=== PATIENT | male | born 1955 | race African-American/Black ===

== ENCOUNTER 2019-12-07 10:24 | Inpatient (IN) ==
[2019-12-07] MEDS ORDERED: KETOROLAC 60 MG/2 ML VIAL IM STA (12:02)
[2019-12-07 12:46] LABS: Basophils # 0.1 10*3/uL (0.0-0.2); Basophils % 0.2 % (0.0-0.8); Eosinophils # 0.1 10*3/uL (0.0-0.87); Eosinophils % 0.2 % (0.00-10.9); Hematocrit 27.1 VOL% (42.0-52.0); Immature Granulocytes % 1.2 %; Immature Granulocytes Absolute 0.45 #; Lymphocytes # 1.1 10*3/uL (1.4-4.0); Mean Corpuscular HGB Conc 33.2 GM/DL (32-36); Mean Corpuscular Volume 76.6 FL (87-102); Mean Platelet Volume 9.1 FL (9.6-12.0); Monocytes % 9.2 % (1.7-12.7); Neutrophils % 86.2 % (38.7-73.9); Platelet Count 708 T/CUMM (130-400); Red Blood Count 3.54 MC/CUMM (3.8-5.5); Red Cell Distribution Width 20.7 % (9.3-17.3); White Blood Count 37.7 T/CUMM (4-12)
[2019-12-07 13:03] LABS: Albumin 1.7 G/DL (3.4-5.0); Bilirubin,Total 0.5 MG/DL (0.2-1.0); Calcium 8.1 MG/DL (8.5-10.1); Osmolality,Calculated 263.7 MOS/KG (273-304); Total Protein 7.2 G/DL (6.4-8.3)
[2019-12-07] MEDS ORDERED: VANCOMYCIN INJ 750 MG in SODIUM CHLORIDE 0.9% 250 ML IV ONE (13:18)
[2019-12-07] MEDS ORDERED: ONDANSETRON 4 MG/2 ML VIAL IV PRN (13:21)
[2019-12-07] MEDS ORDERED: ACETAMINOPHEN 325 MG TABLET PO PRN (13:21)
[2019-12-07] MEDS ORDERED: HYDROmorphone 2 MG/1 ML VIAL IV PRN (13:21)
[2019-12-07] MEDS ORDERED: ALBUTEROL/IPRATROPIUM 3 ML NEB RESP TX PRN (13:21)
[2019-12-07 13:29] LABS: Lymphocytes 2 % (20-55); Platelet Estimate Increased; Segmented Neutrophils 92 % (50-85); Tear Drop Cells 1+; Total Cells Counted 100
[2019-12-07 13:30] LABS: Microcytosis 1+
[2019-12-07] MEDS: HYDROmorphone 2 MG/1 ML VIAL IV PRN ×2 (16:11→22:58)
[2019-12-07] MEDS: LACTATED RINGERS 1,000 ML IV SCH ×2 (17:18→22:56)
[2019-12-07] MEDS ORDERED: LIDOCAINE 2% 5 ML VIAL ONE (19:09)
[2019-12-07] MEDS ORDERED: SEVOFLURANE 1 UNIT/15 MINUTE INH ONE (19:09)
[2019-12-07] MEDS ORDERED: propofoL 200 MG/20 ML VIAL IV ONE (19:09)
[2019-12-07] MEDS ORDERED: PHENYLEPHRINE 1 MG/10 ML SYRINGE IV ONE (19:10)
[2019-12-07] MEDS ORDERED: SUCCINYLCHOLINE 200 MG/10 ML VIAL ONE (19:10)
[2019-12-07] MEDS ORDERED: MIDAZOLAM 2 MG/2 ML VIAL ONE (19:10)
[2019-12-07] MEDS ORDERED: ETOMIDATE 40 MG/20 ML VIAL IV ONE (19:10)
[2019-12-07] MEDS ORDERED: fentaNYL 100 MCG/2 ML VIAL ONE (19:10)
[2019-12-07] MEDS ORDERED: ONDANSETRON 4 MG/2 ML VIAL ONE (19:10)
[2019-12-07] MEDS ORDERED: ROCURONIUM 100 MG/10 ML VIAL IV ONE (19:10)
[2019-12-08] MEDS ORDERED: VANCOMYCIN INJ 750 MG in SODIUM CHLORIDE 0.9% 250 ML IV SCH (02:00)
[2019-12-08] MEDS: VANCOMYCIN INJ 1,000 MG in SODIUM CHLORIDE 0.9% 250 ML IV SCH ×2 (02:53→13:49)
[2019-12-08 05:38] LABS: INR 1.2; PT Patient Result 12.3 SECS (9.8-11.9)
[2019-12-08] MEDS: HYDROmorphone 2 MG/1 ML VIAL IV PRN ×3 (05:57→18:09)
[2019-12-08 06:08] LABS: Alanine Aminotransferase 16 U/L (16-61); Albumin 1.6 G/DL (3.4-5.0); Alkaline Phosphatase 120 U/L (45-117); Aspartate Amino Transferase 17 U/L (0-37); Bilirubin,Total < 0.39 MG/DL (0.2-1.0); Blood Urea Nitrogen 8 MG/DL (7-18); Estimated Glom Filtration Rate 122 ML/MIN; Glucose 79 MG/DL (74-106); Osmolality,Calculated 264.2 MOS/KG (273-304); Total Protein 6.4 G/DL (6.4-8.3)
[2019-12-08 07:43] LABS: Basophils # 0.1 10*3/uL (0.0-0.2); Basophils % 0.3 % (0.0-0.8); Hematocrit 25.6 VOL% (42.0-52.0); Hemoglobin 8.6 GM/DL (14.0-18.0); Immature Granulocytes % 0.7 %; Immature Granulocytes Absolute 0.15 #; Lymphocytes # 1.2 10*3/uL (1.4-4.0); Lymphocytes % 5.3 % (21.2-54.2); Mean Corpuscular HGB Conc 33.6 GM/DL (32-36); Mean Corpuscular Volume 76.6 FL (87-102); Mean Platelet Volume 9.9 FL (9.6-12.0); Monocytes % 8.4 % (1.7-12.7); Neutrophils % 85.3 % (38.7-73.9); Platelet Count 771 T/CUMM (130-400); Red Blood Count 3.34 MC/CUMM (3.8-5.5); Red Cell Distribution Width 21.2 % (9.3-17.3)
[2019-12-08 08:02] LABS: Band Neutrophils 2 % (0-10); Lymphocytes 2 % (20-55); Platelet Estimate Increased; Segmented Neutrophils 90 % (50-85); Total Cells Counted 100
[2019-12-08 08:03] LABS: Hypochromasia 2+; Microcytosis Slight; Ovalocytes Slight
[2019-12-08] MEDS: PANTOPRAZOLE 40 MG TABLET PO SCH (08:45)
[2019-12-08] MEDS: LACTATED RINGERS 1,000 ML IV SCH ×2 (08:45→18:14)
[2019-12-08] MEDS: KETOROLAC 15 MG/1 ML VIAL IV PRN (08:48)
[2019-12-08] MEDS: CEFEPIME 1,000 MG in SODIUM CHLORIDE 0.9% 100 ML IV SCH ×4 (09:21→22:00)
[2019-12-08] MEDS ORDERED: hydrOXYzine HCL 10 MG TABLET PO PRN (14:14)
[2019-12-08] MEDS ORDERED: PHENOL 1.4% THROAT SPRAY 177 ML BOTTLE PO PRN (14:18)
[2019-12-08] MEDS: NICOTINE 14 MG/24 HR PATCH TRANSDERM SCH (15:20)
[2019-12-08] MEDS: CALCIUM (CARBONATE)/VITAMIN D 500 MG-200 UNIT TABLET PO SCH ×2 (15:20→20:59)
[2019-12-08] MEDS: MUPIROCIN 2% OINT 22 GM TUBE TOP SCH ×2 (15:24→21:01)
[2019-12-08] MEDS: FERROUS SULFATE 325 MG TABLET PO SCH (18:10)
[2019-12-08] MEDS: BETAMETHASONE DIPR 0.05% CREAM 15 GM TUBE TOP SCH (21:00)
[2019-12-08] MEDS: FLUOCINONIDE TOP SCH (21:03)
[2019-12-09] MEDS: LACTATED RINGERS 1,000 ML IV SCH ×3 (02:40→23:30)
[2019-12-09] MEDS: VANCOMYCIN INJ 1,000 MG in SODIUM CHLORIDE 0.9% 250 ML IV SCH ×2 (02:40→14:27)
[2019-12-09] MEDS: HYDROmorphone 2 MG/1 ML VIAL IV PRN (03:34)
[2019-12-09 04:03] LABS: Apearance,Urine CLEAR (Clear); Bacteria,Urine Occasional /HPF (Few); Bilirubin,Urine Negative (Negative); Blood, Urine Moderate mg/dL (Negative); Glucose,Urine (UA) Negative (Negative); Ketones,Urine Negative (Negative); Mucus,Urine Occasional /LPF (Occasional); Nitrite,Urine Negative (Negative); Protein,Urine Negative; RBC,Urine 25 /HPF (0-4); Squamous Epithelial Cell,Urine Occasional /HPF (0-10); Urine Color Yellow (Yellow); Urine Specific Gravity 1.014 (1.001-1.035); Urine Urobilinogen < 2.0 EU/DL (0.2-1.0)
[2019-12-09] MEDS: CEFEPIME 1,000 MG in SODIUM CHLORIDE 0.9% 100 ML IV SCH ×4 (04:30→23:30)
[2019-12-09 06:21] LABS: Basophils # 0.1 10*3/uL (0.0-0.2); Basophils % 0.3 % (0.0-0.8); Hematocrit 19.9 VOL% (42.0-52.0); Hemoglobin 6.5 GM/DL (14.0-18.0); Immature Granulocytes % 0.7 %; Immature Granulocytes Absolute 0.12 #; Lymphocytes # 0.7 10*3/uL (1.4-4.0); Mean Corpuscular HGB Conc 32.7 GM/DL (32-36); Mean Platelet Volume 8.9 FL (9.6-12.0); Monocytes % 9.7 % (1.7-12.7); Neutrophils % 85.3 % (38.7-73.9); Platelet Count 691 T/CUMM (130-400); Red Blood Count 2.62 MC/CUMM (3.8-5.5); White Blood Count 16.6 T/CUMM (4-12)
[2019-12-09 06:38] LABS: Calcium 7.6 MG/DL (8.5-10.1); Osmolality,Calculated 269.8 MOS/KG (273-304)
[2019-12-09] MEDS ORDERED: SODIUM CHLORIDE 0.9% 1,000 ML IV PRN (06:38)
[2019-12-09 06:52] LABS: Band Neutrophils 1 % (0-10); Lymphocytes 5 % (20-55); Segmented Neutrophils 87 % (50-85); Total Cells Counted 100
[2019-12-09 06:53] LABS: Platelet Estimate Increased
[2019-12-09] MEDS: FERROUS SULFATE 325 MG TABLET PO SCH ×2 (08:04→17:26)
[2019-12-09] MEDS: lisinopriL 20 MG TABLET PO SCH (09:10)
[2019-12-09] MEDS: NICOTINE 14 MG/24 HR PATCH TRANSDERM SCH (09:10)
[2019-12-09] MEDS: ASPIRIN EC 81 MG TABLET PO SCH (09:10)
[2019-12-09] MEDS: amLODIPine 10 MG TABLET PO SCH (09:10)
[2019-12-09] MEDS: CHOLECALCIFEROL 400 UNIT TABLET PO SCH (09:11)
[2019-12-09] MEDS: PANTOPRAZOLE 40 MG TABLET PO SCH (09:11)
[2019-12-09] MEDS: MAGNESIUM OXIDE 400 MG TABLET PO SCH (09:11)
[2019-12-09] MEDS: BISACODYL 5 MG TABLET PO PRN (09:11)
[2019-12-09] MEDS: CETIRIZINE 10 MG TABLET PO SCH (09:11)
[2019-12-09] MEDS: CALCIUM (CARBONATE)/VITAMIN D 500 MG-200 UNIT TABLET PO SCH ×3 (09:11→21:07)
[2019-12-09] MEDS: MUPIROCIN 2% OINT 22 GM TUBE TOP SCH ×3 (09:13→21:09)
[2019-12-09] MEDS: POLYETHYLENE GLYCOL POWDER 17 GM PACK PO SCH (09:14)
[2019-12-09] MEDS: BETAMETHASONE DIPR 0.05% CREAM 15 GM TUBE TOP SCH ×2 (09:54→21:10)
[2019-12-09] MEDS: FLUOCINONIDE TOP SCH ×2 (10:12→21:10)
[2019-12-09 12:29] LABS: Basophils # 0.1 10*3/uL (0.0-0.2); Basophils % 0.3 % (0.0-0.8); Eosinophils % 0.1 % (0.00-10.9); Hemoglobin 8.7 GM/DL (14.0-18.0); Immature Granulocytes % 0.7 %; Immature Granulocytes Absolute 0.12 #; Lymphocytes # 0.7 10*3/uL (1.4-4.0); Lymphocytes % 4.3 % (21.2-54.2); Mean Corpuscular HGB Conc 33.5 GM/DL (32-36); Mean Platelet Volume 8.9 FL (9.6-12.0); Monocytes % 8.6 % (1.7-12.7); Platelet Count 780 T/CUMM (130-400); Red Blood Count 3.29 MC/CUMM (3.8-5.5); White Blood Count 16.5 T/CUMM (4-12)
[2019-12-09 12:57] LABS: Anisocytosis 3+; Band Neutrophils 5 % (0-10); Burr Cells Few; Lymphocytes 2 % (20-55); Macrocytosis Slight; Platelet Estimate Increased; Poikilocytosis 1+; Segmented Neutrophils 84 % (50-85); Total Cells Counted 100
[2019-12-09] MEDS: KETOROLAC 15 MG/1 ML VIAL IV PRN ×2 (13:54→21:07)
[2019-12-10] MEDS: VANCOMYCIN INJ 1,000 MG in SODIUM CHLORIDE 0.9% 250 ML IV SCH ×2 (01:00→14:25)
[2019-12-10] MEDS: CEFEPIME 1,000 MG in SODIUM CHLORIDE 0.9% 100 ML IV SCH ×4 (05:50→23:25)
[2019-12-10 05:52] LABS: Basophils % 0.3 % (0.0-0.8); Eosinophils % 0.1 % (0.00-10.9); Hematocrit 23.2 VOL% (42.0-52.0); Hemoglobin 7.7 GM/DL (14.0-18.0); Immature Granulocytes % 1.1 %; Immature Granulocytes Absolute 0.13 #; Lymphocytes # 0.6 10*3/uL (1.4-4.0); Lymphocytes % 4.4 % (21.2-54.2); Mean Corpuscular HGB Conc 33.2 GM/DL (32-36); Mean Corpuscular Volume 78.6 FL (87-102); Mean Platelet Volume 8.5 FL (9.6-12.0); Neutrophils % 86.1 % (38.7-73.9); Platelet Count 741 T/CUMM (130-400); Red Blood Count 2.95 MC/CUMM (3.8-5.5); Red Cell Distribution Width 20.6 % (9.3-17.3); White Blood Count 12.4 T/CUMM (4-12)
[2019-12-10 06:09] LABS: Calcium 7.8 MG/DL (8.5-10.1); Osmolality,Calculated 275.4 MOS/KG (273-304)
[2019-12-10 06:27] LABS: Hypochromasia 3+; Lymphocytes 4 % (20-55); Microcytosis 3+; Ovalocytes Few; Segmented Neutrophils 96 % (50-85); Total Cells Counted 100
[2019-12-10 06:28] LABS: Platelet Estimate Increased; Polychromasia Slight; Target Cells Few
[2019-12-10] MEDS: FERROUS SULFATE 325 MG TABLET PO SCH ×2 (08:07→17:20)
[2019-12-10] MEDS: amLODIPine 10 MG TABLET PO SCH (09:39)
[2019-12-10] MEDS: CETIRIZINE 10 MG TABLET PO SCH (09:39)
[2019-12-10] MEDS: NICOTINE 14 MG/24 HR PATCH TRANSDERM SCH (09:39)
[2019-12-10] MEDS: lisinopriL 20 MG TABLET PO SCH (09:39)
[2019-12-10] MEDS: BISACODYL 5 MG TABLET PO PRN (09:40)
[2019-12-10] MEDS: MAGNESIUM OXIDE 400 MG TABLET PO SCH (09:40)
[2019-12-10] MEDS: MUPIROCIN 2% OINT 22 GM TUBE TOP SCH ×3 (09:40→22:06)
[2019-12-10] MEDS: CALCIUM (CARBONATE)/VITAMIN D 500 MG-200 UNIT TABLET PO SCH ×3 (09:40→22:35)
[2019-12-10] MEDS: ASPIRIN EC 81 MG TABLET PO SCH (09:40)
[2019-12-10] MEDS: BETAMETHASONE DIPR 0.05% CREAM 15 GM TUBE TOP SCH ×2 (09:43→22:07)
[2019-12-10] MEDS: PANTOPRAZOLE 40 MG TABLET PO SCH (09:46)
[2019-12-10] MEDS: CHOLECALCIFEROL 400 UNIT TABLET PO SCH (09:46)
[2019-12-10] MEDS: LACTATED RINGERS 1,000 ML IV SCH ×2 (09:47→23:25)
[2019-12-10] MEDS: POLYETHYLENE GLYCOL POWDER 17 GM PACK PO SCH (10:17)
[2019-12-10] MEDS: FLUOCINONIDE TOP SCH ×2 (10:17→22:07)
[2019-12-10] MEDS: KETOROLAC 15 MG/1 ML VIAL IV PRN (14:24)
[2019-12-11] MEDS: VANCOMYCIN INJ 1,000 MG in SODIUM CHLORIDE 0.9% 250 ML IV SCH (02:30)
[2019-12-11] MEDS: CEFEPIME 1,000 MG in SODIUM CHLORIDE 0.9% 100 ML IV SCH (04:30)
[2019-12-11 06:12] LABS: Basophils % 0.4 % (0.0-0.8); Eosinophils % 0.1 % (0.00-10.9); Hematocrit 24.5 VOL% (42.0-52.0); Hemoglobin 8.1 GM/DL (14.0-18.0); Immature Granulocytes % 1.2 %; Lymphocytes # 0.6 10*3/uL (1.4-4.0); Lymphocytes % 7.3 % (21.2-54.2); Mean Corpuscular HGB Conc 33.1 GM/DL (32-36); Mean Corpuscular Volume 77.5 FL (87-102); Monocytes % 8.9 % (1.7-12.7); Neutrophils % 82.1 % (38.7-73.9); Platelet Count 916 T/CUMM (130-400); Red Blood Count 3.16 MC/CUMM (3.8-5.5); Red Cell Distribution Width 20.9 % (9.3-17.3); White Blood Count 8.2 T/CUMM (4-12)
[2019-12-11 06:24] LABS: Calcium 8.1 MG/DL (8.5-10.1); Osmolality,Calculated 269.8 MOS/KG (273-304)
[2019-12-11 06:47] LABS: Anisocytosis 1+; Hypochromasia 1+; Platelet Estimate Increased; Target Cells Few
[2019-12-11] MEDS: FERROUS SULFATE 325 MG TABLET PO SCH ×2 (08:03→16:26)
[2019-12-11] MEDS: ASPIRIN EC 81 MG TABLET PO SCH (08:03)
[2019-12-11] MEDS: CETIRIZINE 10 MG TABLET PO SCH (08:03)
[2019-12-11] MEDS: lisinopriL 20 MG TABLET PO SCH (08:03)
[2019-12-11] MEDS: amLODIPine 10 MG TABLET PO SCH (08:03)
[2019-12-11] MEDS: CALCIUM (CARBONATE)/VITAMIN D 500 MG-200 UNIT TABLET PO SCH ×3 (08:03→20:57)
[2019-12-11] MEDS: CHOLECALCIFEROL 400 UNIT TABLET PO SCH (08:03)
[2019-12-11] MEDS: PANTOPRAZOLE 40 MG TABLET PO SCH (08:04)
[2019-12-11] MEDS: MAGNESIUM OXIDE 400 MG TABLET PO SCH (08:04)
[2019-12-11] MEDS: NICOTINE 14 MG/24 HR PATCH TRANSDERM SCH (08:04)
[2019-12-11] MEDS: POLYETHYLENE GLYCOL POWDER 17 GM PACK PO SCH (08:05)
[2019-12-11] MEDS: MUPIROCIN 2% OINT 22 GM TUBE TOP SCH ×3 (08:09→20:56)
[2019-12-11] MEDS: BETAMETHASONE DIPR 0.05% CREAM 15 GM TUBE TOP SCH ×2 (08:09→20:56)
[2019-12-11] MEDS: FLUOCINONIDE TOP SCH ×2 (08:10→20:59)
[2019-12-12] MEDS: CALCIUM (CARBONATE)/VITAMIN D 500 MG-200 UNIT TABLET PO SCH ×3 (09:03→21:37)
[2019-12-12] MEDS: amLODIPine 10 MG TABLET PO SCH (09:03)
[2019-12-12] MEDS: CHOLECALCIFEROL 400 UNIT TABLET PO SCH (09:03)
[2019-12-12] MEDS: PANTOPRAZOLE 40 MG TABLET PO SCH (09:03)
[2019-12-12] MEDS: NICOTINE 14 MG/24 HR PATCH TRANSDERM SCH (09:04)
[2019-12-12] MEDS: MAGNESIUM OXIDE 400 MG TABLET PO SCH (09:04)
[2019-12-12] MEDS: FERROUS SULFATE 325 MG TABLET PO SCH ×2 (09:04→17:47)
[2019-12-12] MEDS: CETIRIZINE 10 MG TABLET PO SCH (09:04)
[2019-12-12] MEDS: lisinopriL 20 MG TABLET PO SCH (09:04)
[2019-12-12] MEDS: POLYETHYLENE GLYCOL POWDER 17 GM PACK PO SCH (09:05)
[2019-12-12] MEDS: BETAMETHASONE DIPR 0.05% CREAM 15 GM TUBE TOP SCH ×2 (09:09→21:38)
[2019-12-12] MEDS: MUPIROCIN 2% OINT 22 GM TUBE TOP SCH ×3 (09:09→21:38)
[2019-12-12] MEDS: ASPIRIN EC 81 MG TABLET PO SCH (09:09)
[2019-12-12] MEDS: FLUOCINONIDE TOP SCH ×2 (09:10→21:36)
[2019-12-13] MEDS: CETIRIZINE 10 MG TABLET PO SCH (08:42)
[2019-12-13] MEDS: POLYETHYLENE GLYCOL POWDER 17 GM PACK PO SCH (08:42)
[2019-12-13] MEDS: amLODIPine 10 MG TABLET PO SCH (08:42)
[2019-12-13] MEDS: ASPIRIN EC 81 MG TABLET PO SCH (08:43)
[2019-12-13] MEDS: CALCIUM (CARBONATE)/VITAMIN D 500 MG-200 UNIT TABLET PO SCH (08:43)
[2019-12-13] MEDS: FERROUS SULFATE 325 MG TABLET PO SCH (08:43)
[2019-12-13] MEDS: MAGNESIUM OXIDE 400 MG TABLET PO SCH (08:43)
[2019-12-13] MEDS: CHOLECALCIFEROL 400 UNIT TABLET PO SCH (08:43)
[2019-12-13] MEDS: PANTOPRAZOLE 40 MG TABLET PO SCH (08:43)
[2019-12-13] MEDS: lisinopriL 20 MG TABLET PO SCH (08:43)
[2019-12-13] MEDS: NICOTINE 14 MG/24 HR PATCH TRANSDERM SCH (08:44)
[2019-12-13 08:49] LABS: Basophils % 0.4 % (0.0-0.8); Hematocrit 23.9 VOL% (42.0-52.0); Hemoglobin 8.1 GM/DL (14.0-18.0); Immature Granulocytes % 0.9 %; Immature Granulocytes Absolute 0.09 #; Lymphocytes # 0.9 10*3/uL (1.4-4.0); Lymphocytes % 8.3 % (21.2-54.2); Mean Corpuscular HGB Conc 33.9 GM/DL (32-36); Mean Corpuscular Volume 76.6 FL (87-102); Mean Platelet Volume 8.4 FL (9.6-12.0); Monocytes % 8.8 % (1.7-12.7); Neutrophils % 81.6 % (38.7-73.9); Red Blood Count 3.12 MC/CUMM (3.8-5.5); Red Cell Distribution Width 21.2 % (9.3-17.3); White Blood Count 10.6 T/CUMM (4-12)
[2019-12-13] MEDS: MUPIROCIN 2% OINT 22 GM TUBE TOP SCH (08:49)
[2019-12-13] MEDS: FLUOCINONIDE TOP SCH (08:49)
[2019-12-13] MEDS: BETAMETHASONE DIPR 0.05% CREAM 15 GM TUBE TOP SCH (08:49)
[2019-12-13 08:55] LABS: Platelet Count 1019 T/CUMM (130-400)
[2019-12-13 11:44] VITALS: BP 129/78
== END 2019-12-13 13:05 | disposition home health service (06) | DRG 240 ==
LOC: N.ED 10:24 → N.EDINP 13:21 → N.3E 17:30
PROVIDERS: ADMIT Surgery; ATTEND Surgery